=== PATIENT | male | born 1990 | race Two or more races ===

== ENCOUNTER 2021-03-16 22:46 | Emergency (ER) | payer OTHER ==
[~2021-03-16] VITALS: Ht 175.3 cm; Wt 81.6 kg
--- NOTE | 2021-03-17 00:05 | NUR ---
Dr. Sims at bedside for MSE.
[2021-03-17] MEDS ORDERED: LIDOCAINE HCL 2% 20 ML VIAL IJ ONE (00:15)
[2021-03-17 01:28] VITALS: BP 135/70
--- NOTE | 2021-03-17 01:28 | NUR ---
Patient discharged to home in stable condition. Written and verbal after care instructions given. Patient verbalizes understanding of instructions. Stressed follow up or return to ER for worsening s/s. Patient out of ER with steady gait, no acute signs of distress, VSS, all belongings taken.
== END 2021-03-17 01:28 | disposition home or self-care (01) ==
LOC: ER 22:51
DX: S61.210A Laceration without foreign body of right index finger without damage to nail, initial encounter (principal); F17.210 Nicotine dependence, cigarettes, uncomplicated; W26.8XXA Contact with other sharp object(s), not elsewhere classified, initial encounter; Y93.89 Activity, other specified; Y92.89 Other specified places as the place of occurrence of the external cause; Y99.8 Other external cause status
CPT/HCPCS: A4663